=== PATIENT | male | born 1985 | race Caucasian/White ===

== ENCOUNTER 2023-02-08 21:34 | Emergency (ER) | payer SELFPAY ==
--- NOTE | 2023-02-08 22:03 | RAD REPORT ---
EXAM DESCRIPTION: RAD - Chest Single View - 02/08/2023 9:57 pm CLINICAL HISTORY: CHEST PAIN COMPARISON: <Comparisons> FINDINGS: Lines: None. Lungs: No evidence of edema or pneumonia. Pleural: No significant pleural effusions or pneumothorax. Cardiac: The heart size is within normal limits. Mediastinum: Within normal limits. Bones: No acute fractures. Other: None IMPRESSION: No acute cardiopulmonary disease.
[2023-02-08 22:13] LABS: Absolute Lymphocytes (CBC) 2.1 K/uL (0.7-4.9); Hematocrit 39.7 % (39.6-49.0); Lymphocytes % 35.1 % (15.3-44.8); MCV 87.1 fL (80-100); MPV 9.6 fL (7.6-11.3); RBC Red Blood Cell Count 4.55 M/uL (4.33-5.43)
[2023-02-08] MEDS ORDERED: NA CHLORIDE 0.9% 1,000 ML ONE (22:23)
[2023-02-08] MEDS ORDERED: ONDANSETRON 4 MG/2 ML VIAL ONE (22:23)
[2023-02-08 22:37] LABS: Potassium 3.4 mEq/L (3.5-5.1); Troponin High Sensitivity 4.9 pg/mL (<58.9)
[2023-02-08 22:38] LABS: Thyroid Stimulating Hormone 4.56 uIU/mL (0.358-3.740)
[2023-02-08 23:18] LABS: Specific Gravity 1.009 (1.005-1.030); Urine Bilirubin NEGATIVE (Negative); Urine Blood Negative (Negative); Urine Clarity Clear (Clear); Urine Color Colorless (Yellow); Urine Glucose NEGATIVE (Negative); Urine Protein NEGATIVE (Negative); Urine Urobilinogen Normal (Normal)
--- NOTE | 2023-02-09 00:01 | EDPHYS ---
Physician Documentation [facility] Name: Geovani Madsen Age: 37 yrs Sex: Male : 1985 Arrival Date: 02/08/2023 Time: 21:34 Bed 20 Private MD: ED Physician Anselmo Pollock HPI: 02/09 00:03 This 37 yrs old Male presents to ER via Ambulatory with complaints of Chest Pain > 30 kb y/o, Dizziness. 00:03 The patient has experienced near-syncope, felt faint. Onset: The symptoms/episode kb began/occurred 30-45 min chief radiology. Duration: The patient has had multiple episodes, that are intermittent. Context: occurred at home, occurred while the patient was sitting. Associated injury: The patient did not suffer any apparent associated injury. Associated signs and symptoms: Pertinent positives: chest tightness, dizziness. Current symptoms: Currently, the patient is not experiencing any symptoms, the patient feels back to baseline, no decreased level of consciousness, no confusion, no dysphasia, no headache, no paralysis, no visual changes. The patient has not experienced similar symptoms in the past. The patient has not recently seen a physician. Patient is a 37-year-old male with a history of insomnia who presents for dizziness, near syncope, chest tightness that started 30 to 45 minutes prior to arrival. Patient states symptoms are intermittent. Reports low back pain a few days ago so he started taking AZO's. Denies any urinary symptoms. States he mowed the yard today. States he does not drink a lot of water, normally Coke.. Historical: - Allergies: 02/08 22:11 No Known Allergies; kl - Home Meds: 22:11 Sleeping oral [Active]; kl - PMHx: 22:11 insomnia; kl - PSHx: 22:11 None; kl - Immunization history:: Adult Immunizations not immunized, . - Social history:: Smoking status: Patient denies any tobacco usage or history of. ROS: 02/09 00:00 Constitutional: Negative for fever, chills, and weight loss. kb Cardiovascular: Positive for chest pain. Neuro: Positive for dizziness, near syncope. All other systems are negative. Exam: 02/08 22:08 ECG was reviewed by the Attending Physician. kb 02/09 00:00 Constitutional: This is a well developed, well nourished patient who is awake, alert, kb and in no acute distress. Head/Face: Normocephalic, atraumatic. ENT: Moist Mucous membranes Cardiovascular: Regular rate and rhythm with a normal S1 and S2. No gallops, murmurs, or rubs. No pulse deficits. Respiratory: Respirations even and unlabored. No increased work of breathing. Talking in full sentences Abdomen/GI: Soft, non-tender. No distention Skin: Warm, dry with normal turgor. Normal color. MS/ Extremity: Pulses equal, no cyanosis. Neurovascular intact. Full, normal range of motion. Neuro: Awake and alert, GCS 15, oriented to person, place, time, and situation. Moves all extremities. Normal gait. Vital Signs: 02/08 21:45 BP 127 / 79; Pulse 67; Resp 18; Temp 97; Pulse Ox 100% on R/A; Weight 63.5 kg (R); kl Height 5 ft. 11 in. ; Pain 11/08; 21:45 BP 126 / 71 Sitting; Pulse 72 LA; kl 21:45 BP 120 / 87 Standing; Pulse 76 LA; kl 23:03 BP 111 / 80; Pulse 68; Resp 16; Pulse Ox 99% on R/A; 02/09 00:03 BP 125 / 60; Pulse 68; Resp 16; Pulse Ox 100% on R/A; kl 02/08 21:45 Body Mass Index 19.53 (63.50 kg, 180.34 cm) 02/08 21:45 Pain Scale: Adult kl MDM: 02/08 21:38 Patient medically screened. bs3 02/09 00:00 Differential diagnosis: abnormal EKG, acute myocardial infarction, anxiety, coronary kb artery disease chest wall pain, dehydration, rhabdomyolosis. Data reviewed: vital signs, nurses notes. Counseling: I had a detailed discussion with the patient and/or guardian regarding: the historical points, exam findings, and any diagnostic results supporting the discharge/admit diagnosis, lab results, radiology results, the need for outpatient follow up, a family practitioner, to return to the emergency department if symptoms worsen or persist or if there are any questions or concerns that arise at home. ED course: Pt educated on diagnostic results and need for repeat troponin 3 hours from initial. Pt states he is feeling better and would rather go home. Agreed to second troponin at that time, which was completed and normal. Pt stable for discharge. Pt given return precautions and verbalized understanding. . 06 21:49 Order name: Basic Metabolic Panel; Complete Time: 22:58 kb 02/08 21:49 Order name: CBC with Diff; Complete Time: 22:29 kb 02/08 21:49 Order name: Troponin HS; Complete Time: 22:58 kb 02/08 21:49 Order name: Urinalysis w/ reflexes; Complete Time: 23:21 kb 02/08 21:49 Order name: CPK; Complete Time: 22:58 kb 02/08 21:49 Order name: TSH; Complete Time: 22:58 kb 02/08 22:41 Order name: T4 Free; Complete Time: 22:58 EDMS 02/08 23:26 Order name: Troponin High Sensitivity; Complete Time: 23:59 kb 02/08 21:49 Order name: XRAY Chest (1 view); Complete Time: 22:11 kb 02/08 21:49 Order name: EKG; Complete Time: 21:51 kb 02/08 21:49 Order name: Cardiac monitoring; Complete Time: 22:13 kb 02/08 21:49 Order name: EKG - Nurse/Tech; Complete Time: 22:13 kb 02/08 21:49 Order name: IV Saline Lock; Complete Time: 22:13 kb 02/08 21:49 Order name: Labs collected and sent; Complete Time: 22:13 kb 02/08 21:49 Order name: O2 Per Protocol; Complete Time: 22:13 kb 02/08 21:49 Order name: O2 Sat Monitoring; Complete Time: 22:13 kb 02/08 21:49 Order name: Orthostatics; Complete Time: 22:13 kb EC/10 22:08 Rate is 77 beats/min. Rhythm is regular. QRS [place] is Normal. [place] interval is normal at kb 120 msec. QRS interval is normal at 96 msec. QT interval is normal at 416 msec. Administered Medications: 22:19 Drug: NS 0.9% IV 1000 ml Route: IV; Rate: 1000 ml; Site: right antecubital; kl 23:14 Follow up: IV Status: Completed infusion; IV Intake: 1000ml kl 22:19 Drug: Ondansetron IVP 4 mg Route: IVP; Site: right antecubital; Disposition Summary: 02/08/23 23:59 Discharge Ordered Location: Home kb Condition: Stable kb Diagnosis - Syncope Near kb Followup: kb - With: Emergency Department - When: As needed - Reason: Worsening of condition Followup: kb - With: Private Physician - When: 2 - 3 days - Reason: Recheck today's complaints, Continuance of care, Re-evaluation by your physician Discharge Instructions: - Discharge Summary Sheet kb - Near-Syncope, [id number] kb Forms: - Medication Reconciliation Form kb - Thank You Letter kb - Antibiotic Education kb - Prescription Opioid Use kb Signatures: Dispatcher [employer] EDMS Emily Griffiths, ISHMAELC PAXTON-Marleni Stoner RN RN Anselmo Rosado MD MD bs3
--- NOTE | 2023-02-09 00:01 | ER ---
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 Coronavirus screen: Vaccine status: Patient reports being unvaccinated. Ebola Screen: Patient negative for fever greater than or equal to 101.5 degrees Fahrenheit, and additional compatible Ebola Virus Disease symptoms. 21:45 Method Of Arrival: Ambulatory 22:09 Chief complaint:. kl 02/09 00:14 Acuity: AUDREY 3 kl 00:14 Initial Sepsis Screen: Does the patient meet any 2 criteria? No. Patient's initial kl sepsis screen is negative. Does the patient have a suspected source of infection? No. Patient's initial sepsis screen is negative. Risk Assessment: Do you want to hurt yourself or someone else? Patient reports no desire to harm self or others. Onset of symptoms was February 08, 2023. Triage Assessment: 02/08 22:12 General: Appears in no apparent distress. Behavior is calm, cooperative. Pain: Denies kl pain. Cardiovascular: Reports chest pressure off and on denies at time of triage Rhythm is sinus rhythm. Respiratory: No deficits noted. GI: No deficits noted. No signs and/or symptoms were reported involving the gastrointestinal system. : No deficits noted. No signs and/or symptoms were reported regarding the genitourinary system. Derm: No deficits noted. No signs and/or symptoms reported regarding the dermatologic system. Musculoskeletal: No deficits noted. No signs and/or symptoms reported regarding the musculoskeletal system. Historical: - Allergies: 22:11 No Known Allergies; kl - Home Meds: 22:11 Sleeping oral [Active]; kl - PMHx: 22:11 insomnia; kl - PSHx: 22:11 None; kl - Immunization history:: Adult Immunizations not immunized, . - Social history:: Smoking status: Patient denies any tobacco usage or history of. Screenin:04 [facility] ED Fall Risk Assessment (Adult) History of falling in the last 3 months, kl including since admission No falls in past 3 months (0 pts) Confusion or Disorientation No (0 pts) Intoxicated or Sedated No (0 pts) Impaired Gait No (0 pts) Mobility Assist Device Used No (0 pt) Altered Elimination No (0 pt) Score/Fall Risk Level 0 - 2 = Low Risk Oriented to surroundings, Maintained a safe environment. Abuse screen: Denies threats or abuse. Nutritional screening: No deficits noted. Tuberculosis screening: No symptoms or risk factors identified. Assessment: 23:04 Reassessment: Patient appears in no apparent distress at this time. Patient and/or kl family updated on plan of care and expected duration. Pain level reassessed. Patient is alert, oriented x 3, equal unlabored respirations, skin warm/dry/pink. Patient denies pain at this time. Patient states feeling better. Patient states symptoms have improved. 02/09 00:03 Reassessment: Patient appears in no apparent distress at this time. Patient is alert, kl oriented x 3, equal unlabored respirations, skin warm/dry/pink. Patient denies pain at this time. Patient states feeling better. 00:14 Pain: Pain does not radiate. Vital Signs: 02/08 21:45 BP 127 / 79; Pulse 67; Resp 18; Temp 97; Pulse Ox 100% on R/A; Weight 63.5 kg (R); Height 5 ft. 11 in. ; Pain /; 21:45 BP 126 / 71 Sitting; Pulse 72 LA; kl 21:45 BP 120 / 87 Standing; Pulse 76 LA; kl 23:03 BP 111 / 80; Pulse 68; Resp 16; Pulse Ox 99% on R/A; 02/09 00:03 BP 125 / 60; Pulse 68; Resp 16; Pulse Ox 100% on R/A; 02/08 21:45 Body Mass Index 19.53 (63.50 kg, 180.34 cm) 02/08 21:45 Pain Scale: Adult ED Course: 02/08 21:37 Patient arrived in ED. bp1 21:42 Emily Griffiths FNP-C is PHCP. kb 21:42 Anselmo Pollock MD is Attending Physician. kb 21:59 XRAY Chest (1 view) In Process Unspecified. EDMS 22:13 CPK Sent. kl 22:13 Basic Metabolic Panel Sent. kl 22:13 CBC with Diff Sent. kl 22:14 Troponin HS Sent. kl 23:04 Patient has correct armband on for positive identification. Bed in low position. Call light in reach. Side rails up X2. Client placed on continuous cardiac and pulse oximetry monitoring. NIBP monitoring applied. 23:14 Urinalysis w/ reflexes Sent. kl 23:37 Troponin High Sensitivity Sent. 06 00:13 No provider procedures requiring assistance completed. IV discontinued, intact, kl bleeding controlled, No redness/swelling at site. Pressure dressing applied. 00:14 Triage completed. kl 00:14 Patient maintains SpO2 saturation greater than 95% on room air. kl 00:14 EKG completed in triage. Results shown to MD. Administered Medications: 02/08 22:19 Drug: NS 0.9% IV 1000 ml Route: IV; Rate: 1000 ml; Site: right antecubital; kl 23:14 Follow up: IV Status: Completed infusion; IV Intake: 1000ml 22:19 Drug: Ondansetron IVP 4 mg Route: IVP; Site: right antecubital; Medication: 02/09 00:14 VIS not applicable for this client. Intake: 02/08 23:14 IV: 1000ml; Total: 1000ml. Outcome: 23:59 Discharge ordered by . talya 02/09 00:13 Discharged to home ambulatory, with family. Condition: stable Discharge instructions given to patient, Instructed on discharge instructions, follow up and referral plans. Demonstrated understanding of instructions, follow-up care. 00:15 Patient left the ED. Signatures: Dispatcher [employer] EDCA Emily Griffiths, DOCK GRADER-C DOCK GRADER-Marleni Stoner, RADHA RN Ivette Trevino bp1
[2023-02-09 01:07] VITALS: TEMP 97
[2023-02-09 01:09] VITALS: BP 125/60; O2SAT 100
--- NOTE | 2023-02-10 12:06 | EKG ---
Test Date: 2023-02-08 Test Time: 21:51:42 Railroad Operator: JOHN MEASUREMENT RESULTS: Intervals: Rate: 77 CO: 120 QRSD: 96 QT: 368 QTc: 416 [place]: P: 87 CO: 120 QRS: 78 T: 64 INTERPRETIVE STATEMENTS: Normal sinus rhythm with sinus arrhythmia Incomplete right bundle branch block Borderline ECG Compared to ECG 06/24/2009 22:58:16 Incomplete right bundle-branch block now present Electronically Signed On 02-10-23 12:00:56 CDT by Duran Garland
== END 2023-02-09 00:15 | disposition home or self-care (01) ==
LOC: ER 21:34
DX: R55 Syncope and collapse (principal); R07.9 Chest pain, unspecified
CPT/HCPCS: 36415; 71045; 80048; 81003; 82550; 84439; 84443; 84484; 85025; 93005; 96361; 96374; 99284; J2405; J7030

== ENCOUNTER 2023-02-24 12:06 | Emergency (ER) | payer SELFPAY ==
[2023-02-24 13:06] LABS: Hematocrit 41.8 % (39.6-49.0); Lymphocytes % 27.8 % (15.3-44.8); MCV 87.2 fL (80-100); MPV 9.3 fL (7.6-11.3); RBC Red Blood Cell Count 4.79 M/uL (4.33-5.43)
--- NOTE | 2023-02-24 13:11 | RAD REPORT ---
EXAM DESCRIPTION: CT - Abdomen Pelvis W Contrast - 02/24/2023 12:59 pm CLINICAL HISTORY: Abdominal pain COMPARISON: none. TECHNIQUE: Computed axial tomography of the abdomen pelvis was obtained. 100 cc Isovue-300 was admin istered intravenously. Oral contrast was not requested which limits evaluation of bowel and appendix All CT scans are performed using dose optimization technique as appropriate and may include automated exposure control or mA/KV adjustment according to patient size. FINDINGS: The liver, spleen, pancreas, adrenal and right kidney unremarkable Tiny left renal calculus. No hydronephrosis Normal appendix There is no evidence of diverticulitis. Moderate amount stool within the colon IMPRESSION: Moderate amount of stool within the colon. Tiny nonobstructing left renal calculus
[2023-02-24 13:18] LABS: Albumin 4.4 g/dL (3.4-5.0); Bilirubin Total 0.4 mg/dL (0.2-1.0); Potassium 4.2 mEq/L (3.5-5.1); Protein, Total 8.1 g/dL (6.4-8.2)
--- NOTE | 2023-02-24 13:29 | ER ---
Nurse's Notes [facility] Name: Geovani Madsen Age: 37 yrs Sex: Male : 1985 Arrival Date: 02/24/2023 Time: 12:06 Bed 20 Private MD: Diagnosis: Constipation, unspecified;Encounter for screening for lower gastrointestinal disorder Presentation: 02/24 12:11 Chief complaint: Patient states: Blood in stools along with pain in the mornings, nj1 on/off, first noted about 8 months ago. Denies pain right now. Have bleed about 3 times over the past week. Coronavirus screen: Vaccine status: At this time, the client does not indicate any symptoms associated with coronavirus-19. Ebola Screen: Patient denies travel to an Ebola-affected area in the 21 days before illness onset. Initial Sepsis Screen: Does the patient meet any 2 criteria? No. Patient's initial sepsis screen is negative. Does the patient have a suspected source of infection? No. Patient's initial sepsis screen is negative. Risk Assessment: Do you want to hurt yourself or someone else? Patient reports no desire to harm self or others. Onset of symptoms was 2021. 12:11 Acuity: AUDREY 3 nj1 12:11 Method Of Arrival: Ambulatory nj1 Historical: - Allergies: 12:19 No Known Allergies; nj1 - PMHx: 12:19 insomnia; nj1 - PSHx: 12:19 None; nj1 - Immunization history:: Adult Immunizations unknown. - Social history:: Smoking status: Patient reports use of chewing tobacco. - Family history:: not pertinent. - Hospitalizations: : No recent hospitalization is reported. Screenin:30 [facility] ED Fall Risk Assessment (Adult) Score/Fall Risk Level 0 - 2 = Low Risk. Abuse eh3 screen: Denies threats or abuse. Denies injuries from another. Nutritional screening: No deficits noted. Tuberculosis screening: No symptoms or risk factors identified. Assessment: 12:30 General: Appears in no apparent distress. comfortable, Behavior is calm, cooperative, eh3 appropriate for age. Pain: Complains of pain in abdomen. Neuro: Level of Consciousness is awake, alert, obeys commands, Oriented to person, place, time, situation. Cardiovascular: Capillary refill < 3 seconds Patient's skin is warm and dry. Respiratory: Airway is patent Respiratory effort is even, unlabored, Respiratory pattern is regular, symmetrical. GI: Abdomen is flat, non-distended, Bowel sounds present X 4 quads. Abd is soft and non tender X 4 quads. Derm: Skin is pink, warm \T\ dry. Musculoskeletal: Circulation, motion, and sensation intact. 13:15 Reassessment: Patient appears in no apparent distress at this time. Patient and/or eh3 family updated on plan of care and expected duration. Pain level reassessed. Patient is alert, oriented x 3, equal unlabored respirations, skin warm/dry/pink. Vital Signs: 12:11 BP 135 / 99; Pulse 79; Resp 18; Temp 98.2(O); Pulse Ox 97% on R/A; Weight 58.97 kg; nj1 Height 5 ft. 10 in. ; Pain 0/10; 13:15 BP 116 / 79; Pulse 58; Resp 18; Pulse Ox 100% on R/A; eh3 12:11 Body Mass Index 18.65 (58.97 kg, 177.8 cm) nj1 12:11 Pain Scale: Adult nj1 ED Course: 12:09 Patient arrived in ED. mr 12:09 Neptali Gomez MD is Attending Physician. rn 12:18 Triage completed. nj1 12:19 Arm band placed on left wrist. nj1 12:30 Patient has correct armband on for positive identification. Bed in low position. Call eh3 light in reach. Pulse ox on. NIBP on. 12:30 Inserted saline lock: 20 gauge in right antecubital area, using aseptic technique. 3 Blood collected. 12:54 Odalis Tom, RADHA is Primary Nurse. 3 13:00 CT Abd/Pelvis - IV Contrast Only In Process Unspecified. EDMS 13:28 Tano Staples MD is Referral Physician. rn 13:47 No provider procedures requiring assistance completed. IV discontinued, intact, eh3 bleeding controlled, No redness/swelling at site. Pressure dressing applied. Administered Medications: No medications were administered Medication: 13:47 VIS not applicable for this client. eh3 Outcome: 13:29 Discharge ordered by . rn 13:48 Discharged to home ambulatory, with family. eh3 13:48 Condition: stable 13:48 Discharge instructions given to patient, Instructed on discharge instructions, follow up and referral plans. Demonstrated understanding of instructions, follow-up care. 13:51 Patient left the ED. eh3 Signatures: Dispatcher [employer] EDMS PhillipsaYumi Roman, MD MD rn TomOdalis RN RN 3 Rivka Iniguez RN RN nj1
--- NOTE | 2023-02-24 13:29 | EDPHYS ---
Physician Documentation [facility] Name: Geovani Madsen Age: 37 yrs Sex: Male : 1985 Arrival Date: 02/24/2023 Time: 12:06 Bed 20 Private MD: ED Physician Neptali Gomez HPI: 02/24 12:48 This 37 yrs old Male presents to ER via Ambulatory with complaints of Abdominal Pain, rn Bloody Stools, Nausea. 12:48 The patient presents to the emergency department with nausea, abdominal pain. Onset: rn The symptoms/episode began/occurred 1 week(s) ago. Possible causes: unknown. The symptoms are aggravated by nothing. The symptoms are alleviated by nothing. Associated signs and symptoms: Pertinent positives: abdominal pain, GI bleeding, nausea, Pertinent negatives: fever. Severity of symptoms: At their worst the symptoms were mild in the emergency department the symptoms have improved. The patient has experienced similar episodes in the past. Pt reports mid abd pain, intermittent for 1 week, has had a few red bloody bowel movements over the last week. This has happened before but went away on its own so was waiting to see what happened, came in for evaluation because didn't resolve on its own this time. NO fever. No current abd pain. No vomiting. . Historical: - Allergies: 12:19 No Known Allergies; nj1 - PMHx: 12:19 insomnia; nj1 - PSHx: 12:19 None; nj1 - Immunization history:: Adult Immunizations unknown. - Social history:: Smoking status: Patient reports use of chewing tobacco. - Family history:: not pertinent. - Hospitalizations: : No recent hospitalization is reported. ROS: 12:48 Constitutional: Negative for fever, chills, and weight loss, Eyes: Negative for injury, rn pain, redness, and discharge, Cardiovascular: Negative for chest pain, palpitations, and edema, Respiratory: Negative for shortness of breath, cough, wheezing, and pleuritic chest pain, Abdomen/GI: + abd pain and nausea MS/Extremity: Negative for injury and deformity, Skin: Negative for injury, rash, and discoloration, Neuro: Negative for headache, numbness, tingling, and seizure. Exam: 12:48 Constitutional: Thin male, no acute distress Cardiovascular: Regular rate and rhythm. rn No pulse deficits. Respiratory: No increased work of breathing, no retractions or nasal flaring. Abdomen/GI: soft, no focal tenderness, no rebound, no guarding Skin: Warm, dry MS/ Extremity: Pulses equal, no cyanosis. Neuro: Awake and alert, GCS 15 Vital Signs: 12:11 BP 135 / 99; Pulse 79; Resp 18; Temp 98.2(O); Pulse Ox 97% on R/A; Weight 58.97 kg; nj1 Height 5 ft. 10 in. ; Pain 0/10; 13:15 BP 116 / 79; Pulse 58; Resp 18; Pulse Ox 100% on R/A; eh3 12:11 Body Mass Index 18.65 (58.97 kg, 177.8 cm) nj1 12:11 Pain Scale: Adult nj1 MDM: 12:09 Patient medically screened. rn 13:27 Differential diagnosis: Nonspecific abd pain, diverticulitis, viral gastroenteritis, rn gastroenteritis, colitis, internal hemorrhoid, constipation, dehydration, IBD. Data reviewed: vital signs, nurses notes, lab test result(s), radiologic studies, CT scan, and as a result, I will discharge patient. Counseling: I had a detailed discussion with the patient and/or guardian regarding: the historical points, exam findings, and any diagnostic results supporting the discharge/admit diagnosis, lab results, radiology results, the need for outpatient follow up, to return to the emergency department if symptoms worsen or persist or if there are any questions or concerns that arise at home. Special discussion: Based on the patient's Hx, exam, and Dx evaluation, there is no indication for emergent surgery or inpatient Tx. It is understood by the patient/guardian that if the Sx's persist or worsen they need to return immediately for re-evaluation. I discussed with the patient/guardian in detail that at this point there is no indication for admission to the hospital. It is understood, however, that if the symptoms persist or worsen the patient needs to return immediately for re-evaluation. Based on the history and exam findings, there is no indication for further emergent testing or inpatient evaluation. I discussed with the patient/guardian the need to see the locksmith for further evaluation of the symptoms. ED course: NO acute findings on CT abdomen, normal h/h, stable vitals, will dc home with rehydration instructions, water intake, better diet and increased fiber. Also recommend GI f/u. Return precautions given and understood. . 02/24 12:18 Order name: CBC with Diff; Complete Time: 13:16 rn 02/24 12:18 Order name: CMP; Complete Time: 13:19 rn 02/24 12:18 Order name: Lipase; Complete Time: 13:19 rn 02/24 12:18 Order name: CT Abd/Pelvis - IV Contrast Only; Complete Time: 13:16 rn 02/24 12:18 Order name: IV Saline Lock; Complete Time: 12:54 rn 02/24 12:18 Order name: Labs collected and sent; Complete Time: 12:54 rn Administered Medications: No medications were administered Disposition Summary: 02/24/23 13:29 Discharge Ordered Location: Home rn Problem: new rn Symptoms: have improved rn Condition: Stable rn Diagnosis - Constipation, unspecified rn - Encounter for screening for lower gastrointestinal disorder rn Followup: rn - With: Tano Staples MD - When: As needed - Reason: Recheck today's complaints, Re-evaluation by your physician Discharge Instructions: - Discharge Summary Sheet rn - Constipation, Adult rn - Lower Gastrointestinal Bleeding rn Forms: - Medication Reconciliation Form rn - Thank You Letter rn - Antibiotic joinery patternmaker - Prescription Opioid Use rn - [email or web address] rn Signatures: Dispatcher [employer] Neptali Katz MD MD rn Hall, Erin RN RN eh3 Rivka Iniguez, RN RN nj1
[2023-02-24 14:06] VITALS: TEMP 98.2
[2023-02-24 14:11] VITALS: BP 116/79; O2SAT 100
[2023-02-24] MEDS ORDERED: DOXYCYCLINE 100 MG CAP PO ONE (14:56)
== END 2023-02-24 13:51 | disposition home or self-care (01) ==
LOC: ER 12:06
DX: Z13.811 Encounter for screening for lower gastrointestinal disorder (principal)
CPT/HCPCS: 36415; 74177; 80053; 83690; 85025; 99284; Q9967

== ENCOUNTER 2025-04-23 23:02 | Emergency (ER) | payer SELFPAY ==
[2025-04-23] MEDS ORDERED: AMOX/K CLAV 875 MG TAB ONE (23:22)
[2025-04-23] MEDS ORDERED: HYDROCODONE/APAP 7.5/325 MG TAB ONE (23:22)
--- NOTE | 2025-04-23 23:23 | EDPHYS ---
Physician Documentation [facility] Name: Geovani Madsen Age: 40 yrs Sex: Male : 1985 Arrival Date: 04/23/2025 Time: 23:02 Bed IW3 Private MD: ED Physician Duglas Salgado HPI: 04/23 23:40 This 40 yrs old Male presents to ER via Unassigned with complaints of toothache. kb 23:40 Pt is a 40 year old male who presents for toothache that started one week ago and has kb progressively gotten worse. States he has bad teeth and needs to have work done but cannot afford it. Denies fever. . Historical: - Allergies: 04/24 00:06 No Known Allergies; vc1 - Home Meds: 00:06 None [Active]; vc1 - PMHx: 00:06 insomnia; vc1 - PSHx: 00:06 None; vc1 - Immunization history:: Adult Immunizations unknown. - Infectious Disease History:: Denies. - Social history:: Smoking status: unknown. ROS: 04/23 23:40 Constitutional: As per HPI kb Exam: 23:40 Constitutional: This is a well developed, well nourished patient who is awake, alert, kb and in no acute distress. Head/Face: Normocephalic, atraumatic. Cardiovascular: Regular rate Respiratory: Respirations even and unlabored. No increased work of breathing. Talking in full sentences Skin: Warm, dry with normal turgor. Normal color. MS/ Extremity: Pulses equal, no cyanosis. Neurovascular intact. Full, normal range of motion. Neuro: Awake and alert, GCS 15, oriented to person, place, time, and situation. 23:40 ENT: Dental exam: dental caries, that is moderate, diffusely, gum swelling, that is mild, specifically in the upper left second molar (#15), pain, that is moderate, specifically in the upper left second molar (#15), Vital Signs: 23:33 BP 113 / 76; Pulse 59; Resp 16; Temp 99.3; Pulse Ox 100% ; vc1 MDM: 23:18 Medical Screening Exam initiated kb 23:42 Differential diagnosis: dental caries, gingivitis, dental abscess, pericoronitis, kb aphthous ulcers. Data reviewed: vital signs, nurses notes. Counseling: I had a detailed discussion with the patient and/or guardian regarding the historical points, exam findings, and any diagnostic results supporting the discharge/admit diagnosis, the need for outpatient follow up, a dentist, to return to the emergency department if symptoms worsen or persist or if there are any questions or concerns that arise at home. Administered Medications: 23:29 Drug: Amoxicillin-Clavulanate PO 875 mg PO once Route: PO; eb1 23:29 Drug: Hydrocodone-Acetaminophen PO (7.5 mg-325 mg) 1 tabs PO once Route: PO; eb1 Disposition Summary: 04/23/25 23:22 Discharge Ordered Notes: Location: Home kb Condition: Stable kb Diagnosis - Dental caries, unspecified kb Followup: kb - With: Emergency Department - When: As needed - Reason: Worsening of condition Followup: kb - With: Private Physician - When: 2 - 3 days - Reason: Recheck today's complaints, Continuance of care, Re-evaluation by your physician Discharge Instructions: - Discharge Summary Sheet kb - Dental Caries, Adult kb - Dental Pain, [id number] kb - Dental Abscess, [id number] kb Forms: - Medication Reconciliation Form kb - Antibiotic Education kb - Prescription Opioid Use kb - Patient Portal Instructions kb - Leadership Thank You Letter kb Prescriptions: - Augmentin 875-125 mg Oral Tablet - take 1 tablet ORAL route every 12 hours for 10 days; 20 tablet; Refills: 0, kb Product Selection Permitted - Diclofenac Sodium 75 mg Oral tablet, delayed release (enteric coated) - take 1 tablet ORAL route 2 times per day As needed; 30 tablet; Refills: 0, kb Product Selection Permitted Addendum: 04/26/2025 13:36 Co-signature as Attending Physician, Duglas Salgado MD I agree with the assessment and c akbar plan of care. Signatures: Emily Griffiths, PAXTON-C PAXTON-Duglas Lopez MD MD cha Basinger, Emily, RN RN eb1 Julieth Okeefe RN RN vc1
--- NOTE | 2025-04-24 00:10 | ER ---
Nurse's Notes [facility] Name: Geovani Madsen Age: 40 yrs Sex: Male : 1985 Arrival Date: 04/23/2025 Time: 23:02 Bed IW3 Private MD: Diagnosis: Dental caries, unspecified Presentation: 04/23 23:33 Chief complaint:. eb1 23:33 Chief complaint: Patient states: left back tooth pain times one week. vc1 23:33 Coronavirus screen: Client denies travel out of the [place] in the last 14 days. At this vc1 time, the client does not indicate any symptoms associated with coronavirus-19. Ebola Screen: Patient negative for fever greater than or equal to 101.5 degrees Fahrenheit, and additional compatible Ebola Virus Disease symptoms Patient denies exposure to infectious person. Patient denies travel to an Ebola-affected area in the 21 days before illness onset. No symptoms or risks identified at this time. Initial Sepsis Screen: Does the patient meet any 2 criteria? No. Patient's initial sepsis screen is negative. Does the patient have a suspected source of infection? No. Patient's initial sepsis screen is negative. Risk Assessment: Do you want to hurt yourself or someone else? Patient reports no desire to harm self or others. Onset of symptoms is unknown. 23:33 Method Of Arrival: Ambulatory vc1 23:33 Acuity: AUDREY 4 vc1 23:38 Chief complaint:. eb1 Triage Assessment: 04/24 00:08 General: Appears in no apparent distress. uncomfortable, Behavior is calm, cooperative, vc1 appropriate for age. Pain: Complains of pain in upper left second molar (#15). EENT: Reports pain in upper left second molar (#15). Neuro: Level of Consciousness is awake, alert, obeys commands, Oriented to person, place, time, situation, Appropriate for age. Cardiovascular: Capillary refill < 3 seconds Patient's skin is warm and dry. Respiratory: Airway is patent Respiratory effort is even, unlabored, Respiratory pattern is regular, symmetrical. Derm: Skin is intact, is healthy with good turgor, Skin is dry, Skin is normal, Skin temperature is warm. Historical: - Allergies: 00:06 No Known Allergies; vc1 - Home Meds: 00:06 None [Active]; vc1 - PMHx: 00:06 insomnia; vc1 - PSHx: 00:06 None; vc1 - Immunization history:: Adult Immunizations unknown. - Infectious Disease History:: Denies. - Social history:: Smoking status: unknown. Screenin/23 23:30 [facility] ED Fall Risk Assessment (Adult) History of falling in the last 3 months, vc1 including since admission No falls in past 3 months (0 pts) Confusion or Disorientation No (0 pts) Intoxicated or Sedated No (0 pts) Impaired Gait No (0 pts) Mobility Assist Device Used No (0 pt) Altered Elimination No (0 pt) Score/Fall Risk Level 0 - 2 = Low Risk Oriented to surroundings, Maintained a safe environment, Educated pt \T\ family on fall prevention, incl call for assistance when getting out of bed, Hourly rounding (assess needs \T\ fall precautionary measures) done. Abuse screen: Denies threats or abuse. Nutritional screening: No deficits noted. Tuberculosis screening: No symptoms or risk factors identified. Vital Signs: 23:33 BP 113 / 76; Pulse 59; Resp 16; Temp 99.3; Pulse Ox 100% ; vc1 ED Course: 23:18 Patient arrived in ED. [id number] 23:18 Emily Griffiths FNP-C [facility]. 23:18 Duglas Salgado MD is Attending Physician. talya 04/24 00:06 Triage completed. vc1 00:07 Patient has correct armband on for positive identification. Bed in low position. Call vc1 light in reach. Provided Education on: antibiotics. 00:08 Arm band placed on. vc1 00:09 No provider procedures requiring assistance completed. Patient did not have IV access vc1 during this emergency room visit. Administered Medications: 04/23 23:29 Drug: Amoxicillin-Clavulanate PO 875 mg PO once Route: PO; eb1 23:29 Drug: Hydrocodone-Acetaminophen PO (7.5 mg-325 mg) 1 tabs PO once Route: PO; eb1 Medication: 04/24 00:08 VIS not applicable for this client. vc1 Outcome: 04/23 23:22 Discharge ordered by . talya 04/24 00:09 Discharged to home ambulatory, vc1 Condition: stable Discharge instructions given to patient, Instructed on discharge instructions, follow up and referral plans. medication usage, Demonstrated understanding of instructions, follow-up care, medications, Prescriptions given X 2, 00:10 Patient left the ED. vc1 Signatures: Emily Griffiths, ISHMAELC PAXTON-Farzana Masters RN RN eb1 Zehra Antunez [email or web address] Julieth Okeefe RN RN vc1
== END 2025-04-24 00:10 | disposition home or self-care (01) ==
LOC: ER 23:02
DX: K02.9 Dental caries, unspecified (principal)
CPT/HCPCS: 99283